=== PATIENT | female | born 1990 | race Caucasian/White ===

== ENCOUNTER 2017-12-29 22:11 | Emergency (ER) | payer MEDICAID ==
[~2017-12-29] VITALS: Ht 157.5 cm; Wt 86.2 kg
[~2017-12-29 22:11] MED LIST: ARIP10TA9; SER25; SERT25TA77
[2017-12-29 22:35] VITALS: BP_SYST 105
[2017-12-29] MEDS ORDERED: KETOROLAC TROMETHAMINE 60 MG/2 ML VIAL IM ONE (23:15)
[2017-12-29 23:28] LABS: BILIRUBIN,URINE NEGATIVE (NEGATIVE); BLOOD, URINE NEGATIVE (NEGATIVE); CLARITY/URINE CLOUDY (CLEAR); COLOR,URINE YELLOW (YELLOW); GLUCOSE,URINE NEGATIVE (NEGATIVE); KETONES,URINE TRACE (NEGATIVE); LEUKOCYTE ESTERASE ,URINE 1+ (NEGATIVE); NITRITE, URINE NEGATIVE (NEGATIVE); PROTEIN URINE NEGATIVE (NEGATIVE); UROBILINOGEN,URINE 0.2 (0.2-1.0)
[2017-12-29 23:34] LABS: BACTERIA,URINE MANY /HPF (None Seen); MUCUS,URINE None Seen /LPF (None Seen); RBC,URINE 0-3 /HPF (0-3)
[2017-12-30 00:01] VITALS: BP_SYST 114
== END 2017-12-30 00:01 | disposition home or self-care (01) ==
LOC: SED 22:11
DX: S39.012A Strain of muscle, fascia and tendon of lower back, initial encounter (principal); N39.0 Urinary tract infection, site not specified; F32.9 Major depressive disorder, single episode, unspecified; Z90.49 Acquired absence of other specified parts of digestive tract; Z88.0 Allergy status to penicillin; Z79.899 Other long term (current) drug therapy; X50.0XXA Overexertion from strenuous movement or load, initial encounter; Y93.89 Activity, other specified; Y92.89 Other specified places as the place of occurrence of the external cause; Y99.8 Other external cause status
CPT/HCPCS: 81000; 81025; 87086; 96372; 99284; J1885

== ENCOUNTER 2021-11-02 06:27 | Emergency (ER) | payer MEDICAID ==
[~2021-11-02] VITALS: Ht 157.5 cm; Wt 95.3 kg
--- NOTE | 2021-11-02 06:42 | NUR ---
[facility] w/ c/o midsternal chest pain and upper back pain 10/15. Pt denies SOB, N/V. Pt states recent covid positive, but tested negative Saturday (10/29/2021). Respirations even and unlabored. Normal skin color for ethnicity. EKG being completed at this time.
[2021-11-02] MEDS ORDERED: IBUPROFEN 600 MG TABLET PO ONE (06:45)
[2021-11-02 06:46] VITALS: BP_SYST 123
--- NOTE | 2021-11-02 07:07 | NUR ---
Report given to Naa WEEMS
--- NOTE | 2021-11-02 07:08 | NUR ---
RECEIVED PT FROM FAUSTINA GARCIA. PT IS SLEEPING PEACEFULLY. RESP E/U. NO DISTRESS NOTED. PT HAS BEEN REPORTED TO BE COOPERATIVE THROUGH THE NIGHT. PT DENIES SUICIDAL IDEATION. IN IV ACCESS. SIDERAILS UP X2. Addendum: 11/02/21 at 0712 by [email or web address] WRONG PT.
--- NOTE | 2021-11-02 07:15 | NUR ---
RECEIVED PT FROM FAUSTINA GARCIA. PT IS AAOX4. DENIES C/P. RESP E/U. ON R/A. DENIES N/V/D/C. NO DISTRESS NOTED. NO IV ACCESS IN PLACE. MOTHER AT BEDSIDE. SIDERAILS UP X2.
--- NOTE | 2021-11-02 08:14 | NUR ---
Dr. Llamas at bedside, stated that pt may have discomfort due to anxiety vs muscle bone pain. Suggested viseral for r/o. Pt agreed with POC.
[2021-11-02] MEDS ORDERED: VIS25 PO (08:34)
--- NOTE | 2021-11-02 08:55 | NUR ---
Patient given written and verbal discharge instructions and verbalizes understanding. ER MD discussed with patient the results and treatment provided. Patient in stable condition. ID arm band removed. Rx of given. Patient educated on pain management and to follow up with PMD. Pain Scale 0/10. Opportunity for questions provided and answered. Medication side effect fact sheet provided.
[2021-11-02 08:58] VITALS: BP_SYST 111
== END 2021-11-02 08:55 | disposition home or self-care (01) ==
LOC: SED 06:27
DX: M54.9 Dorsalgia, unspecified (principal); Z88.0 Allergy status to penicillin; Z88.2 Allergy status to sulfonamides; Z79.899 Other long term (current) drug therapy
CPT/HCPCS: 71045; 93005; 99283